=== PATIENT | male | born 1935 | race Caucasian/White ===

== ENCOUNTER 2016-10-23 06:07 | Day surgery (SDC) | payer MEDICARE ==
[2016-10-23] MEDS ORDERED: CEFAZOLIN SODIUM 2 GRAM DUPLEX 50 ML IV PRN (06:30)
[2016-10-23] MEDS ORDERED: IV START KIT ONE (06:33)
[2016-10-23] MEDS ORDERED: LACTATED RINGERS 1,000 ML ONE (06:33)
[2016-10-23] MEDS ORDERED: CEFAZOLIN SODIUM 2 GRAM PREMIX 100 ML IV ONE (06:36)
[2016-10-23] MEDS ORDERED: SODIUM CHLORIDE 0.9% 1,000 ML ONE (07:51)
[2016-10-23] MEDS ORDERED: FENTANYL 100 MCG/2 ML VIAL ONE (08:21)
[2016-10-23] MEDS ORDERED: MIDAZOLAM HCL 5 MG/5 ML VIAL ONE (08:21)
[2016-10-23] MEDS ORDERED: OPIUM/BELLADONNA ALKALOIDS 1 EACH SUP PR ONE (08:24)
[2016-10-23] MEDS ORDERED: PROMETHAZINE HCL 25 MG/ML VIAL IM PRN (08:47)
[2016-10-23] MEDS ORDERED: LABETALOL HCL 5 MG/ML 20ML VIAL IV PRN (08:47)
[2016-10-23] MEDS ORDERED: MORPHINE SULFATE 4 MG/ML SYRINGE IV PRN ×2 (08:47→11:30)
[2016-10-23] MEDS ORDERED: ATROPINE SULFATE 0.4 MG/1 ML VIAL IV PRN (08:47)
[2016-10-23] MEDS ORDERED: NALOXONE HCL 0.4 MG/ML VIAL IV PRN (08:47)
[2016-10-23] MEDS ORDERED: MEPERIDINE 25 MG/ML SYRINGE IV PRN (08:47)
[2016-10-23] MEDS ORDERED: ONDANSETRON 4 MG/2ML 2 ML VIAL IV PRN ×2 (08:47→10:14)
[2016-10-23] MEDS ORDERED: LACTATED RINGERS 1,000 ML IV SCH (09:00)
[2016-10-23] MEDS ORDERED: METOCLOPRAMIDE HCL 5 MG/ML 2ML VIAL ONE (09:29)
[2016-10-23] MEDS ORDERED: SPINAL PROCEDURAL TRAY 1 EACH ONE (09:29)
[2016-10-23] MEDS ORDERED: BUPIVACAINE 0.75% SPINAL AMPUL 2 ML ONE (09:29)
[2016-10-23] MEDS ORDERED: BISACODYL 10 MG SUP PR PRN (10:14)
[2016-10-23] MEDS ORDERED: TRAMADOL HCL 50 MG TABLET PO PRN (10:14)
[2016-10-23] MEDS ORDERED: BLISTEX LIPSTICK 1 EACH TP PRN (10:14)
[2016-10-23] MEDS ORDERED: OPIUM/BELLADONNA ALKALOIDS 1 EACH SUP PR PRN (10:14)
[2016-10-23] MEDS ORDERED: MORPHINE SULFATE 2 MG/ML SYRINGE IV PRN (10:14)
[2016-10-23] MEDS ORDERED: MENTHOL/CETYLPYRD 1 EACH LOZENGE PO PRN (10:14)
[2016-10-23] MEDS ORDERED: FLUTICASONE PROPIONATE 50 MCG/SPRAY 120 SPRAYS/16 G INH NS PRN (10:14)
--- NOTE | 2016-10-23 10:25 | OP ---
ANTONIO MACKEY [id number] DATE OF OPERATION: October 23, 2016 SURGEON: Chidi Freeman M.D. REFINISH TECHNICIAN: None. ANESTHESIA: Spinal. PREOPERATIVE DIAGNOSIS: 1. Bladder neck contracture. 2. Some residual prostatic tissue with recurrent lower urinary tract symptoms and urinary tract infections. POSTOPERATIVE DIAGNOSIS: 1. Bladder neck contracture. 2. Some residual prostatic tissue with recurrent lower urinary tract symptoms and urinary tract infections. PROCEDURE: 1. CYSTOSCOPY. 2. LASER RESECTION OF BLADDER NECK CONTRACTURE. 3. TRANSURETHRAL RESECTION OF ANTEROLATERAL PROSTATE FLAP. SPECIMENS: Chips of anterolateral prostate flap and bladder neck. INDICATIONS: A 81-year-old male with a history of transurethral resection of the prostate approximately in 1992 presented with lower urinary tract symptoms and having been placed back on alpha blockers. Urodynamic studies demonstrated an open bladder neck but narrow fossa and an elevated voiding pressure. It was difficult to catheterize him as well. PSA was 1.3. Cystoscopy demonstrated a rigid bladder neck and prostatic fossa contracture with some residual tissues such as at the apex, but we could not examine all the way in. FINDINGS: The anterior urethra appears normal. Membranous urethra was intact with a small superficial scar just external to it, the prostatic fossa was elongated with previously resected scar tissue and narrowed down from the bladder neck. We could not get through the bladder neck due to the density of the contracture. We focused on resection to the left lateral aspect between the 2 o'clock and 5 o'clock positions. Within the bladder, ureteral orifices were normally disposed and relatively close to the bladder neck consistent with previous resection, and the bladder wall was moderately to severely trabeculated. PROCEDURE: The patient was identified and brought to the operating room where spinal anesthetic was applied, and he was placed in a dorsal lithotomy position. The genital region was prepared and draped sterilely. Distal urethra was calibrated with Angelique sounds to a 30 Burmese, and then a 27 Burmese resectoscope sheath was introduced with a visual obturator. Once in the prostatic urethra, we switched over to a laser bridge and chose a 1000 micron fiber. The energy of the laser started at 7 kaplan and worked its way up to 20 kaplan. We focused on releasing the left-sided tissue which appeared most dense and rigid, mainly between the 2 o'clock and 5 o'clock positions. As we took this down, the bladder neck progressively opened up allowing us to eventually get inside and complete the internal exam. We then continued the resection and deepening of the prostatic urethra at approximately the 4 to 5 o'clock position. Once this was sufficiently completed, we could see that there was a prominent anterolateral flap toward the left that was hanging down probably functioning as something of a flap valve. Therefore, we switched over to a small loop bipolar resectoscope and saline as an irrigant, and resected this anterolateral tissue sufficiently to prevent the flap phenomenon. After removing chips and checking for any final bleeding, a 24 Burmese Gagnon catheter was passed and left to gravity drainage with 40 mL of water in its balloon. Three-way saline irrigation was instituted. Estimated blood loss less than 20 mL. Resection time approximately 30 minutes. Total energy consumed 11.965 kilojoules. Patient was taken in stable condition to the post anesthesia room. cc: Chidi Freeman M.D. Reena Mcelroy D.O.
[2016-10-23 11:09] VITALS: BMI 38.7
[2016-10-23] MEDS ORDERED: MORPHINE SULFATE 10 MG/ML SYRINGE IV PRN (11:31)
[2016-10-23] MEDS: HYDROCODONE/ACETAMINOPHEN 5/325MG TABLET PO PRN ×2 (14:16→20:32)
[2016-10-23] MEDS: PHENAZOPYRIDINE HCL 200 MG TABLET PO SCH ×2 (14:16→20:33)
[2016-10-23] MEDS ORDERED: SODIUM CHLORIDE 500 IRRIG BOT 500 ML IR ONE (15:18)
[2016-10-23] MEDS ORDERED: SODIUM CHLORIDE 3 L IRRIG BAG 3,000 ML IR ONE ×2 (16:45→19:24)
[2016-10-23] MEDS: MONTELUKAST SODIUM 10 MG TABLET PO SCH (17:57)
[2016-10-23] MEDS ORDERED: ATORVASTATIN CALCIUM 40 MG TABLET PO SCH (20:00)
[2016-10-23] MEDS ORDERED: HYDROCHLOROTHIAZIDE 25 MG TABLET PO SCH (20:00)
[2016-10-23] MEDS ORDERED: LISINOPRIL 10 MG TABLET PO SCH (20:00)
[2016-10-23] MEDS ORDERED: METFORMIN HCL 1,000 MG TABLET PO SCH (20:00)
[2016-10-23] MEDS: DOCUSATE SODIUM 250 MG CAPSULE PO SCH (20:32)
[2016-10-23] MEDS ORDERED: POLYETHYLENE GLYCOL 3350 17 G POWD.SUSP PO SCH (21:00)
[2016-10-24] MEDS: MONTELUKAST SODIUM 10 MG TABLET PO SCH (09:38)
[2016-10-24] MEDS: PHENAZOPYRIDINE HCL 200 MG TABLET PO SCH (09:38)
[2016-10-24] MEDS: DOCUSATE SODIUM 250 MG CAPSULE PO SCH (09:38)
[2016-10-24 11:35] VITALS: BP 143/85
--- NOTE | 2016-10-26 09:50 | SURGPATH ---
[facility] [address] [place] [id number] Patient Name: ANTONIO MACKEY MR#: [id number] : 1935 Gender: M Specimen #: [id number] Collected: 10/23/2016 Received: 10/25/2016 Reported: 10/26/2016 Submitting Phys: DONALD BARRETT Copy To Phys: [facility] Clinical History / Pre-Operative Diagnosis: BLADDER NECK CONTRACTURE Specimen Source / Surgical Procedure Performed: BLADDER NECK PROSTATE Interpretation: BLADDER NECK PROSTATE, BIOPSY: - BENIGN FIBROMUSCULAR TISSUE, FAT AND PROSTATE GLANDS Electronically Signed Out Evaristo Singh M.D. Gross Description: The specimen is received in a formalin filled container labeled with the patient's name and "bladder neck prostate". An aggregate of rubbery villalba tissue fragments is 1.5 x 1.0 x 0.4 cm. Totally embedded in one cassette. Bola Pedro PJoana. Microscopic Description: A slide contains fragments of fibromuscular and fatty tissue and rare benign prostate glands. 1: [id number] Q64.39
== END 2016-10-24 13:00 | disposition home or self-care (01) ==
LOC: SDC 06:07 → MS 10:30 → SDC 10-24 13:00
PROVIDERS: ATTEND Urology
PROC: 0VT08ZZ Resection of Prostate, Via Natural or Artificial Opening Endoscopic (ICD-10-PCS; principal; 2016-10-23)
PROC: 0TBC8ZZ Excision of Bladder Neck, Via Natural or Artificial Opening Endoscopic (ICD-10-PCS; 2016-10-23)
DX: N40.1 Benign prostatic hyperplasia with lower urinary tract symptoms (principal); N32.0 Bladder-neck obstruction; N39.0 Urinary tract infection, site not specified; I10 Essential (primary) hypertension; I25.10 Atherosclerotic heart disease of native coronary artery without angina pectoris; E11.9 Type 2 diabetes mellitus without complications; E66.9 Obesity, unspecified; G47.33 Obstructive sleep apnea (adult) (pediatric)